=== PATIENT | female | born 1995 | race Caucasian/White ===

== ENCOUNTER 2021-03-23 07:12 | Emergency (ER) | payer BC ==
[~2021-03-23] VITALS: Ht 170.2 cm; Wt 108.8 kg
[~2021-03-23 07:12] MED LIST: BIRTH CONTROL PILL; DICY10CA3 PO; PROM12.58 PO; RANI150C PO; SUCR1ORA5 PO
--- NOTE | 2021-03-23 07:42 | PHYS DOC ---
General Adult EDM: Chief Complaint: ABDOMINAL PAIN HPI: HPI: 26-year-old female presents with right flank pain. The patient began having intermittent sharp pains last night around 6 PM. She went to bed at 9 PM. She was woken from sleep several times with a sharp stabbing pain in the right flank. It would last for a few minutes and then subside. The pain would completely go away but she continues to have these episodes. She decided she should come in for evaluation. She has had some urinary urgency but denies dysuria frequency. She does have a history of kidney stones in the past. Denies fever or chills. Review of Systems: Review of Systems: Constitutional: Denies fever or chills Eyes: Denies change in visual acuity HENT: Denies nasal congestion or sore throat Respiratory: Denies cough or shortness of breath Cardiovascular: Denies chest pain or edema GI: Denies abdominal pain, nausea, vomiting, bloody stools or diarrhea : Urinary urgency Musculoskeletal: Right flank pain Integument: Denies rash Neurologic: Denies headache, focal weakness or sensory changes Endocrine: Denies polyuria or polydipsia Lymphatic: Denies swollen glands Psychiatric: Denies depression or anxiety Allergies: Allergies: Allergies Coded Allergies Type Severity Reaction Last Updated Verified Latex, Natural Rubber Allergy Intermediate 05/15/16 Yes nickel Allergy Intermediate 05/15/16 Yes Physical Exam: PE: Constitutional: Well developed, well nourished, obese, no acute distress, non- toxic appearance. [] HENT: Normocephalic, atraumatic, bilateral external ears normal, oropharynx moist, no oral exudates, nose normal. [] Eyes: PERRLA, EOMI, conjunctiva normal, no discharge. [] Neck: Normal range of motion, no tenderness, supple, no stridor. [] Cardiovascular:Heart rate regular rhythm, no murmur [] Lungs & Thorax: Bilateral breath sounds clear to auscultation [] Abdomen: Bowel sounds normal, soft, mild right upper quadrant tenderness, no masses, no pulsatile masses. [] Skin: Warm, dry, no erythema, no rash. [] Back: No tenderness, right-sided CVA tenderness. [] Extremities: No tenderness, no cyanosis, no clubbing, ROM intact, no edema. [] Neurologic: Alert and oriented X 3, normal motor function, normal sensory function, no focal deficits noted. [] Psychologic: Affect normal, judgement normal, mood normal. [] EKG: EKG: [] Radiology/Procedures: Radiology/Procedures: [] Impressions: INDICATION: Reason: right flank pain / Spl. Instructions: c section 4 mo, neg. preg test 03/23/2021 / History: COMPARISON: None. TECHNIQUE: Axial CT images were obtained through the abdomen and pelvis without intravenous contrast. One or more of the following individualized dose reduction techniques were utilized for this examination: 1. Automated exposure control; 2. Adjustment of the mA and/or kV according to patient size; 3. Use of iterative reconstruction technique. FINDINGS: [id number] hiatal hernia. Vascular: No abdominal aortic aneurysm. Hepatobiliary: Liver is prominent in size. There is a small amount high density material within the gallbladder which could be from gallbladder sludge. Pancreas: No peripancreatic edema. Spleen: Spleen unremarkable. Renal/Bladder: Bilateral nonobstructive renal stones. No hydronephrosis. Urinary bladder has minimal urine within it at time of exam with mild prominence of the wall. Gastrointestinal: Superior to the urinary bladder and anterior to the uterus there is a low-density masslike structure identified measuring approximately 50 x 48 mm. There is some colonic diverticulosis. The appendix measures up to about 6 mm which is borderline enlarged. There is lymphadenopathy within the abdomen and pelvis including scattered throughout the mesentery. Degenerative changes spine IMPRESSION: * Bilateral nonobstructive renal stones without hydronephrosis. * The appendix is near the upper limits of normal in size without definite adjacent inflammatory changes therefore this does not fulfill all of the CT criteria for appendicitis. * Masslike structure is seen anterior to the uterus and superior to the urinary bladder. Would consider obtaining an ultrasound to further assess whether this is solid or cystic in nature. Could be related to an adnexal mass. There is also prominent appearance of the uterus which can be further evaluated on ultrasound as well to assess for possible causes such as fibroid. * Lymphadenopathy is seen within the abdomen and pelvis including the mesentery of unknown etiology. Could be reactive in nature in a patient of this age but if the patient has any history or risk factors for neoplasm a follow-up could be obtained in a few months to ensure no growth in these enlarged lymph nodes. * Hiatal hernia is seen. Electronically signed by: Emani Roper MD (03/23/2021 9:02 AM) DESKTOP- [id number] DICTATED AND SIGNED BY: EMANI ROPER MD DATE: 03/23/21 0848 CC: NOEL AMADOR DO; MAUDE LUGO MD ~MTH0 0 Heart Score: C/O Chest Pain: N/A Risk Factors: Risk Factors: DM, Current or recent (<one month) smoker, HTN, HLP, family history of CAD, obesity. Risk Scores: Score 0 - 3: 2.5% MACE over next 6 weeks - Discharge Home Score 4 - 6: 20.3% MACE over next 6 weeks - Admit for Clinical Observation Score 7 - 10: 72.7% MACE over next 6 weeks - Early Invasive Strategies Course & Med Decision Making: Course & Med Decision Making Pertinent Labs and Imaging studies reviewed. (See chart for details) The patient's labs are unremarkable. Her urinalysis is negative for infection. She is not . Her CT scan did show upper limits normal appendix. The patient does not have pain in this area. There is also a masslike structure anterior to the uterus and superior to the bladder. Is recommended that she have follow-up ultrasound and consultation for this at a later date. See official read for more details. Her pain could be from her gallbladder. She does have sludge bladder. I have advised that she monitor this and if she continues to have symptoms especially related to eating she is to have further evaluation of her gallbladder. She is stable for discharge at this time. [] Dragon Disclaimer: Dragon Disclaimer: This electronic medical record was generated, in whole or in part, using a voice recognition dictation system. Departure Departure: Impression: Primary Impression: Pelvic mass Additional Impressions: Gallbladder sludge GERD (gastroesophageal reflux disease) Hiatal hernia Disposition: HOME / SELF CARE / HOMELESS Condition: STABLE Referrals: MAUDE LUGO MD (PCP) Patient Instructions: Gallbladder Nuclear Scanning, Gastroesophageal Reflux Disease, Adult, [id number] NOEL AMADOR DO Mar 23, 2021 07:42
[2021-03-23 08:12] LABS: CALCIUM 8.5 mg/dL (8.5-10.1); CREATININE 0.7 mg/dL (0.6-1.0); POTASSIUM 3.6 mmol/L (3.5-5.1)
[2021-03-23 08:18] LABS: ALBUMIN 3.5 g/dL (3.4-5.0); ALBUMIN/GLOBULIN RATIO 0.9 (1.0-1.7); TOTAL BILIRUBIN 0.4 mg/dL (0.2-1.0); TOTAL PROTEIN 7.4 g/dL (6.4-8.2)
[2021-03-23 08:19] LABS: BASO # 0.1 x10^3/uL (0.0-0.2); BASO % 1 % (0-3); EOS # 0.2 x10^3/uL (0.0-0.7); EOS % 3 % (0-3); HEMATOCRIT 41.4 % (36.0-47.0); HEMOGLOBIN 13.8 g/dL (12.0-15.5); LYMPH # 2.3 x10^3/uL (1.0-4.8); LYMPH % 35 % (24-48); MEAN CORPUSCULAR HEMOGLOBIN 29 pg (25-35); MEAN CORPUSCULAR HGB CONC 33 g/dL (31-37); MEAN CORPUSCULAR VOLUME 86 fL (79-100); MONO # 0.4 x10^3/uL (0.0-1.1); MONO % 6 % (0-9); NEUT # 3.7 x10^3uL (1.8-7.7); NEUT % 56 % (31-73); PLATELET COUNT 307 x10^3/uL (140-400); RED CELL DISTRIBUTION WIDTH 14.2 % (11.5-14.5); WHITE BLOOD COUNT 6.6 x10^3/uL (4.0-11.0)
[2021-03-23 08:29] LABS: BILIRUBIN,URINE NEG (NEG); CLARITY,URINE HAZY; COLOR,URINE YELLOW; GLUCOSE,URINE NEG (NEG)
[2021-03-23 08:30] LABS: BACTERIA,URINE MOD /HPF (0-FEW); NITRITE,URINE NEG (NEG); RBC,URINE OCC /HPF (0-2); SQUAMOUS EPITHELIAL CELL,UR MOD /LPF; UROBILINOGEN,URINE 0.2 mg/dL (0.2 mg/dL)
--- NOTE | 2021-03-23 09:05 | RAD ---
INDICATION: Reason: right flank pain / Spl. Instructions: c section 4 mo, neg. preg test 03/23/2021 / History: COMPARISON: None. TECHNIQUE: Axial CT images were obtained through the abdomen and pelvis without intravenous contrast. One or more of the following individualized dose reduction techniques were utilized for this examinat ion: 1. Automated exposure control; 2. Adjustment of the mA and/or kV according to patient size; 3 . Use of iterative reconstruction technique. FINDINGS: [id number] hiatal hernia. Vascular: No abdominal aortic aneurysm. Hepatobiliary: Liver is prominent in size. There is a small amount high density material within the gallbladder which could be from gallbladder sludge. Pancreas: No peripancreatic edema. Spleen: Spleen unremarkable. Renal/Bladder: Bilateral nonobstructive renal stones. No hydronephrosis. Urinary bladder has minimal urine within it at time of exam with mild prominence of the wall. Gastrointestinal: Superior to the urinary bladder and anterior to the uterus there is a low-density m asslike structure identified measuring approximately 50 x 48 mm. There is some colonic diverticulosis. The appendix measures up to about 6 mm which is borderline enla rged. There is lymphadenopathy within the abdomen and pelvis including scattered throughout the mesentery. Degenerative changes spine IMPRESSION: * Bilateral nonobstructive renal stones without hydronephrosis. * The appendix is near the upper limits of normal in size without definite adjacent inflammatory nelson nges therefore this does not fulfill all of the CT criteria for appendicitis. * Masslike structure is seen anterior to the uterus and superior to the urinary bladder. Would consi meenakshi obtaining an ultrasound to further assess whether this is solid or cystic in nature. Could be rel ated to an adnexal mass. There is also prominent appearance of the uterus which can be further evalua buster on ultrasound as well to assess for possible causes such as fibroid. * Lymphadenopathy is seen within the abdomen and pelvis including the mesentery of unknown etiology. Could be reactive in nature in a patient of this age but if the patient has any history or risk fact ors for neoplasm a follow-up could be obtained in a few months to ensure no growth in these enlarged lymph nodes. * Hiatal hernia is seen. Electronically signed by: Michael Roper MD (03/23/2021 9:02 AM) [id number]
[2021-03-23 10:00] VITALS: BP 131/92
== END 2021-03-23 10:00 | disposition home or self-care (01) ==
LOC: ER 07:12
DX: K21.9 Gastro-esophageal reflux disease without esophagitis (principal); K44.9 Diaphragmatic hernia without obstruction or gangrene; R19.00 Intra-abdominal and pelvic swelling, mass and lump, unspecified site
CPT/HCPCS: 36415; 74176; 80053; 81001; 81025; 85025; 87086; 99284-25